=== PATIENT | male | born 1990 | race Caucasian/White ===

== ENCOUNTER 2020-06-15 12:38 | Outpatient (CLI) | payer OTHER ==
[2020-06-15 14:04] VITALS: BP 144/94
--- NOTE | 2020-06-15 14:04 | SLEEP CARE CONSULTATION ---
Information from patient questionnaire entered by Carolyn Snyder. I have reviewed and concur with the information entered by Carolyn Snyder. This document represents the service I personally performed and the decisions made by me, Aileen Alvarez ARNP. History of Present Illness Service Date and Time: 06/15/2020 1238 Reason for Visit: New patient Chief Complaint: reports: Insomnia, Unrefreshed sleep, Frequent awakenings at night (just about every hour on the hour), Other (Sleep walking and talking, lack of sleep). denies: Snoring, Excessive daytime sleepiness, Observed pauses in breathing, Fatigue Date of Onset: 30 years Usual bedtime: 3282-8321 Time it takes to fall asleep: 1-3 hours Snores at night: Yes (very little) Observed to quit breathing while asleep: No Sleeps alone due to snoring: No Number of times waking at night: 5 or 6 Reasons for waking at night: reports: Other (anxiety, night terrors). denies: Choking, Snoring, Gasping for air Toss, Turn, or Twitch while sleeping: Yes Recalls having dreams: Yes Usually gets out of bed at: [id number] Feels refreshed in the morning: No Morning headache: No Sleepy or fatigued during the day: Yes (sometimes) Ever fallen asleep while driving: No (no drowsy driving) Takes day naps: No Dreams during day naps: No Prior sleep studies: No Additional HPI information: I had the pleasure of seeing ROSELYN JACOBSON today regarding the possibility of him having a sleep disorder. His current complaints are frequent night awakenings, unrefreshed sleep, sleep walking and talking and lack of sleep. He doesn't sleep well and sometimes does not sleep for a 2-3 days with sometimes an hour nap. This has been the same since he was a child. He does not snore or have pauses in breathing that have been witnessed. He wakes up hourly most nights he does sleep due to anxiety and nightmares. He currently takes clonazepam nightly to help him sleep and as needed for anxiety. He has been having some high blood pressure that his PCP is having him monitor. He has a history of RLS and Bipolar diagnosis in 2013. - Parasomnia Symptoms Ever been unable to move upon waking from sleep: No Walks in sleep: Yes Talks in sleep: Yes Ever acted out dreams in sleep: Yes Ever felt weak in the knees when startled or emotional: Yes Bothered by creepy, crawly, restless sensations in legs: Yes (just if he gets still, tingle feeling) Problems with memory or concentration: Yes (both) Subjective Initial [place] Sleepiness Scale score: 3 (in 2020) Past Medical History Past Medical History: reports: Hypertension (monitoring with PCP, no medications yet), Claustrophobia, Anxiety, Mood disorder (Bipolar 2013, not on medication), GERD (acid reflux). 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 Patient is and lives in [place]. Have you smoked in the past 12 months: No Alcohol use: Yes Alcohol amount and frequency: socially Caffeine use: Yes Caffeine amount and frequency: 1 per day pre-workout; caffiene powder in water Family History Family history of sleep disordered breathing: No Family Hx Sleep Apnea: Father: Snoring, Grandparent: Snoring Allergies and Home Medications Drug allergies reviewed: Yes (dilaudid) Home medication list reviewed: Yes Allergy and home medication list: clonazepam nightly for sleeping/anxiety Review of Systems Weight gain over past 5 years: 45 Cardiovascular: reports: high blood pressure. denies: palpitations, chest pain, irregular heart rate or pulse, leg or foot swelling Respiratory: denies: shortness of breath, chronic cough Gastrointestinal: reports: heartburn. denies: difficulty swallowing Urinary: denies: impotence Neurological: reports: head trauma. denies: headaches, seizure, speech dysfunction, gait or balance problems, fainting or unconsciousness Psychiatric: reports: anxiety, mood disorder, claustrophobia. denies: Attention Deficit Hyperactivity, depression Ear/Nose/Throat: reports: wisdom teeth removed (don't have them). denies: nasal congestion, sinus problems, nose bleeds, dry mouth/throat, tonsillectomy Endocrine: denies: thyroid disease Musculoskeletal: reports: joint pain, neck pain, back pain Immunologic: reports: rash, itching, allergies to food or environment (pine, bleach, ants) Physical Exam Blood Pressure: 144/94 Cuff size: wrist Heart Rate: 73 O2 Saturation: 97 Height: 5 ft 9 in Weight: 214 lb Body Mass Index: 31.6 BMI Classification: Obese HEENT: No craniofacial malformation Nostrils: patent to airflow Turbinates: swollen Septum: midline Mouth and throat: narrow oropharynx Uvula visualization: 50% Mallampati Class II Tongue: normal in size Tonsils: 2+ Chin and jaw: normal size and position Neck: normal w/o lymphadenopathy or thyromegaly Heart: regular rate and rhythm Lungs: clear bilaterally Impression and Plan 1. Suspected Obstructive Sleep Apnea-Hypopnea Syndrome, as suggested by a history of frequent awakening during the night, unrefreshed sleep, and cognitive impairment. I reviewed with patient that a narrow oropharynx and obesity are common predisposing factors for obstructive sleep apnea-hypopnea syndrome. Patient has a history of RLS and is having episodes of high blood pressure that he is suppose to be tracking for his PCP. He is being treated for anxiety with clonazepam and does still walk and talk in his sleep. I recommend proceeding to polysomnography to confirm the diagnosis and to assess severity. If the patient has significant sleep disordered breathing, a manual CPAP titration study will also be performed to find the optimal treatment pressure. I informed the patient of what the sleep studies involve and after some discussion, obtained agreement to proceed. The pathophysiology of obstructive sleep apnea-hypopnea syndrome was discussed with the patient and health risks of cardiovascular and cerebrovascular disease if not treated. Risks of drowsy driving discussed in detail and patient advised to avoid long distance driving and to date puller at the first sign of drowsiness. Patient agreed to plan. * Schedule polysomnography +- manual CPAP titration study. * Avoid long distance driving or driving when feeling sleepy. * Avoid alcohol, sedative and muscle relaxant around bedtime. * Attempt to lose weight. * Review instructions provided by trained office staff on how to prepare for the sleep study. * Return for follow-up after sleep study completed. Counseling Topics: Weight loss health impact Visit Type: In Office Time Spent with Patient (minutes): 30 Provider Statement: I spent 100% of the Face to Face Visit with the patient with greater than 50% spent counseling the patient and coordination of care.
== END 2020-06-15 12:39 | disposition home or self-care (01) ==
LOC: SC 12:38
PROVIDERS: ATTEND Nurse Practitioner Family
DX: G47.8 Other sleep disorders (principal); R53.83 Other fatigue; G47.00 Insomnia, unspecified; G25.81 Restless legs syndrome; G47.50 Parasomnia, unspecified; F51.3 Sleepwalking [somnambulism]; E66.9 Obesity, unspecified; Z68.31 Body mass index [BMI] 31.0-31.9, adult
CPT/HCPCS: 99203; 99212

== ENCOUNTER 2020-07-19 19:13 | Outpatient (CLI) | payer OTHER | END 2020-07-19 19:14 | disposition home or self-care (01) | LOC: SC 19:13 | PROVIDERS: ATTEND Nurse Practitioner Family | DX: R06.83 Snoring (principal); G47.8 Other sleep disorders; R53.83 Other fatigue; G47.50 Parasomnia, unspecified; F51.3 Sleepwalking [somnambulism] | CPT/HCPCS: 95810 ==

== ENCOUNTER 2020-07-26 08:36 | Outpatient (CLI) | payer OTHER ==
--- NOTE | 2020-07-26 09:01 | SLEEP CARE CONSULTATION ---
Information from patient questionnaire entered by Juliet Tejada. I have reviewed and concur with the information entered by Juliet Tejada. This document represents the service I personally performed and the decisions made by , Aileen Alvarez ARNP. History of Present Illness Service Date and Time: 07/26/2020 0836 Initial [place] Sleepiness Scale score: 3 (in 2020) Current [place] Sleepiness Scale score: 3 Additional HPI information: ROSELYN JACOBSON returns for follow up and results of the recently performed polysomnography. The patient was informed of the following findings: no significant sleep disordered breathing with an average AHI of 0.2 and johan oxygen saturation of 91%. I explained the pathophysiology behind obstructive sleep apnea. Patient does not have sleep apnea and was advised how weight gain could increase the risk of developing sleep apnea in the future. I strongly encouraged the patient to lose weight. Patient has light snoring. Snoring can be reduced by weight loss. Weight loss is best achieved with diet consult. Patient instructed to contact PCP for referral. Snoring can also be treated with an oral appliance from a dentist. Advised to check insurance coverage. In addition, an ENT evaluation can be do to see if other treatment is indicated. Patient counseled not drink alcohol less than 4 hours before bedtime as it can increase snoring and apnea. Patient was cautioned about risks of drowsy driving until sleepiness symptoms resolve. Patient denies drowsy driving. Sleep Study - Results Type of Sleep Study: Polysomnography Prior sleep studies: No Polysomnography/Home Sleep Study results: IMPRESSION: The quality of the study is good. The patient had normal sleep efficiency. The sleep architecture was normal as well. Respiratory monitoring showed no significant sleep disordered breathing (AHI = 0.2) or hypoxia (johan oxygen saturation of 91%). The patient slept adequately in supine position (supine AHI = 0.0; nonsupine = 0.20). Snore was infrequent and light in intensity. There was no significant periodic leg movement of sleep. Cardiac rhythm was normal sinus rhythm without significant arrhythmia. No abnormal behavior (parasomnia) observed during the night. Allergies and Home Medications Drug allergies reviewed: Yes (dilaudid) Home medication list reviewed: Yes (Doxepin 10 mg, Prazosin 1 mg; stopped klonapin) Review of Systems Review of systems same as previous: Yes (no changes) Physical Exam Heart Rate: 73 O2 Saturation: 98 Height: 5 ft 9 in Weight: 212 lb Body Mass Index: 31.3 BMI Classification: Obese Impression and Plan 1. Snoring but no significant sleep disordered breathing. Patient advised that often weight loss will reduce snoring as well as apnea risk. An oral appliance can also be used for snoring. This would require a dental consultation. Patient cautioned not to use other online appliances as can cause bite issues. A list of accredited dentists in area and one local dentist who makes oral appliances given. Patient is advised to check if insurance will cover. An ENT consult can also be helpful to determine if any other treatment is an option. * Attempt to lose weight * Avoid alcohol consumption near bedtime * The patient is cautioned about driving until sleepiness is completely resolved. * Return as needed. Counseling Topics: Weight loss health impact Visit Type: In Office Time Spent with Patient (minutes): 12 Provider Statement: I spent 100% of the Face to Face Visit with the patient with greater than 50% spent counseling the patient and coordination of care.
== END 2020-07-26 08:37 | disposition home or self-care (01) ==
LOC: SC 08:36
PROVIDERS: ATTEND Nurse Practitioner Family
DX: R06.83 Snoring (principal); E66.9 Obesity, unspecified; Z68.31 Body mass index [BMI] 31.0-31.9, adult
CPT/HCPCS: 99212

== ENCOUNTER 2021-02-28 10:27 | Outpatient (CLI) | payer OTHER | END 2021-02-28 23:59 | disposition home or self-care (01) | LOC: LAB.N 10:27 | PROVIDERS: ATTEND Emergency Medicine | DX: R06.00 Dyspnea, unspecified (principal); Z20.822 Contact with and (suspected) exposure to COVID-19 ==

== ENCOUNTER 2021-02-28 10:56 | Outpatient (CLI) | payer OTHER ==
--- NOTE | 2021-02-28 17:39 | XRAY Report ---
PROCEDURE: Chest 2 View X-Ray INDICATIONS: DYSPNEA TECHNIQUE: 2 view(s) of the chest. COMPARISON: None. FINDINGS: Surgical changes and devices: None. Lungs and pleura: No pleural effusions or pneumothorax. Lungs are clear. Mediastinum: Mediastinal contours are normal. Heart size is normal. Bones and chest wall: No suspicious bony abnormalities. Soft tissues appear unremarkable. IMPRESSION: Chest without acute cardiopulmonary abnormalities or focal airspace disease. Reviewed by: Ricky Neri MD on 02/28/2021 5:38 PM PDT Approved by: Ricky Neri MD on 02/28/2021 5:38 PM PDT Station ID: [id number]
== END 2021-02-28 23:59 | disposition home or self-care (01) ==
LOC: DI.N 10:56
PROVIDERS: ATTEND Physician Assistant Medical
DX: R06.00 Dyspnea, unspecified (principal)